=== PATIENT | male | born 1955 | race Caucasian/White ===

== ENCOUNTER 2019-03-06 10:11 | Day surgery (SDC) | payer OTHER ==
[~2019-03-06] VITALS: Ht 172.7 cm; Wt 94.3 kg
[2019-03-06] MEDS ORDERED: CEFAZOLIN 2 GM IVPB PREMIX 50 ML IV ONE (11:45)
[2019-03-06] MEDS ORDERED: POLYMYXIN 500,000/BACIT.10,000 UNITS in NS IRR 1 L IR ONE (15:44)
[2019-03-06] MEDS ORDERED: ONDANSETRON HCL 4 MG/2 ML VIAL IVP PRN (18:15)
[2019-03-06] MEDS ORDERED: HYDROmorphone 1 MG INJ. 1 MG/ML AMPUL IVP PRN (18:15)
[2019-03-06] MEDS ORDERED: KETOROLAC TROMETHAMINE 30 MG VIAL IVP PRN ×2 (18:15)
[2019-03-06] MEDS ORDERED: HYDROcodone/ACETAMIN 5-325 MG TAB (NORCO/ VICODIN) PO PRN ×2 (18:15)
[2019-03-06] MEDS ORDERED: HYDROmorphone 2 MG/ML VIAL IVP PRN (18:15)
[2019-03-06] MEDS ORDERED: HYDROmorphone 1 MG INJ. 1 MG/ML AMPUL ONE (18:54)
[2019-03-06 19:30] VITALS: BP_SYST 114
[2019-03-06 20:00] VITALS: BP_SYST 116
[2019-03-06 21:00] VITALS: BP_SYST 123
[2019-03-06 21:30] VITALS: BP_SYST 126
== END 2019-03-06 21:50 | disposition home or self-care (01) ==
LOC: SDS 10:11 → SMU 10:26 → SDS 21:50
PROVIDERS: ATTEND Surgery
DX: K40.91 Unilateral inguinal hernia, without obstruction or gangrene, recurrent (principal); K40.90 Unilateral inguinal hernia, without obstruction or gangrene, not specified as recurrent; I10 Essential (primary) hypertension; E66.9 Obesity, unspecified; Z79.82 Long term (current) use of aspirin; Z79.899 Other long term (current) drug therapy
CPT/HCPCS: 49650; 49651; 88302; C1727; C1781; J0690; J1170; J7120; S2900

== ENCOUNTER 2019-10-12 07:22 | Day surgery (SDC) | payer OTHER, SELFPAY ==
[~2019-10-12] VITALS: Ht 172.7 cm; Wt 103.4 kg
[~2019-10-12 07:22] MED LIST: CEFAZOLIN SOD 2 GM in D5W 50 ML IV ONE
[2019-10-12] MEDS ORDERED: BUPIVACAINE LIPOSOME/PF 266 MG/20 ML VIAL INFIL ONE (08:49)
[2019-10-12] MEDS ORDERED: POLYMYXIN 500,000/BACIT.10,000 UNITS in NS IRR 1 L IR ONE (08:49)
[2019-10-12] MEDS ORDERED: PROPOFOL 200MG/ 20ML VIAL (DIPRIVAN) IV ONE (09:23)
[2019-10-12] MEDS ORDERED: hydrALAZINE HCL 20 MG/ML VIAL IVP ONE (09:23)
[2019-10-12] MEDS ORDERED: ONDANSETRON HCL 4 MG/2 ML VIAL IVP ONE (09:23)
[2019-10-12] MEDS ORDERED: LABETALOL 100 MG/ 20ML VIAL IVP ONE (09:23)
[2019-10-12] MEDS ORDERED: fentaNYL CITRATE 250 MCG/5 ML AMP IV ONE (09:23)
[2019-10-12] MEDS ORDERED: MEPERIDINE HCL/PF 100 MG/ML AMP IM ONE (09:23)
[2019-10-12] MEDS ORDERED: GLYCOPYRROLATE 0.2 MG/ML VIAL IJ ONE (09:23)
[2019-10-12] MEDS ORDERED: BUPIVACAINE /PF 0.25% 30 ML VIAL INJ ONE (09:23)
[2019-10-12] MEDS ORDERED: KETOROLAC TROMETHAMINE 30 MG VIAL IVP ONE (09:23)
[2019-10-12] MEDS ORDERED: METOCLOPRAMIDE HCL 10 MG/2 ML VIAL IVP ONE (09:23)
[2019-10-12] MEDS ORDERED: ROCURONIUM BROMIDE 10 MG/ML (ZEMURON) IV ONE (09:23)
[2019-10-12] MEDS ORDERED: NEOSTIGMINE METHYLSULFATE 1 MG/ML, 10 ML VIAL IVP ONE (09:23)
[2019-10-12] MEDS ORDERED: SUCCINYLCHOLINE CHLORIDE 20 MG/ML(QUELICIN) IVP ONE (09:23)
[2019-10-12] MEDS ORDERED: DEXAMETHASONE SOD PHOSPHATE 4 MG/ML VIAL IVP ONE (09:23)
[2019-10-12] MEDS ORDERED: LR 1,000 ML IV.SOLN IV ONE (09:23)
[2019-10-12] MEDS ORDERED: SEVOFLURANE 15 MIN GAS INH ONE (09:23)
[2019-10-12] MEDS ORDERED: LR 1,000 ML IV SCH (10:13)
[2019-10-12] MEDS ORDERED: HYDROmorphone 2 MG/ML VIAL IVP PRN ×2 (10:15)
[2019-10-12] MEDS ORDERED: MIDAZOLAM HCL 5 MG/5 ML VIAL IVP PRN (10:15)
[2019-10-12] MEDS ORDERED: MEPERIDINE HCL/PF 25 MG/ML DISP.SYRIN IVP PRN (10:15)
[2019-10-12] MEDS ORDERED: DILTIAZEM HCL 25 MG/5 ML VIAL IVP PRN (10:15)
[2019-10-12] MEDS ORDERED: ONDANSETRON HCL 4 MG/2 ML VIAL IVP PRN (10:15)
[2019-10-12] MEDS ORDERED: OXYCODONE/ACETAMINOPHEN 5-325 TABLET PO PRN (10:15)
[2019-10-12] MEDS ORDERED: NALOXONE HCL 0.4 MG/ML AMP (NARCAN) IVP PRN (10:15)
[2019-10-12] MEDS ORDERED: ePHEDrine sulfate 50 MG/ML VIAL IVP PRN (10:15)
[2019-10-12] MEDS ORDERED: HYDROcodone/ACETAMIN 5-325 MG TAB (NORCO/ VICODIN) PO PRN (11:45)
[2019-10-12] MEDS: HYDROmorphone 1 MG INJ. 1 MG/ML AMPUL IVP PRN ×2 (12:05→12:10)
[2019-10-12 12:20] VITALS: BP_SYST 144
[2019-10-12] MEDS ORDERED: HYDROmorphone 1 MG INJ. 1 MG/ML AMPUL ONE (12:21)
== END 2019-10-12 13:30 | disposition home or self-care (01) ==
LOC: SDS 07:22 → SMU 07:22 → SDS 13:30
PROVIDERS: ATTEND Surgery
DX: K43.2 Incisional hernia without obstruction or gangrene (principal); I10 Essential (primary) hypertension; E66.9 Obesity, unspecified; Z11.59 Encounter for screening for other viral diseases
CPT/HCPCS: 49560; 49568; 88304; C1781; C9290; J0330; J0360; J0690; J1100; J1170; J1885; J2175; J2405; J2704; J2710; J2765; J3010; J3490 ×3; J7060; J7120; U0003; 88302